=== PATIENT | female | born 1930 | race Caucasian/White ===

== ENCOUNTER 2017-12-30 16:11 | Emergency (ER) | payer MEDICARE, BC ==
[~2017-12-30] VITALS: Ht 157.5 cm; Wt 68.2 kg
[2017-12-30 16:15] VITALS: TEMP 97.2
[2017-12-30] MEDS ORDERED: COREG 6.256.25 MG/TA PO (17:32)
[2017-12-30] MEDS ORDERED: NORCO 325 MG-51 TAB PO (18:23)
[2017-12-30 20:20] VITALS: BP 138/81; PULSE 80
== END 2017-12-30 20:20 | disposition home or self-care (01) ==
LOC: COL.ER 16:11
DX: S52.502A Unspecified fracture of the lower end of left radius, initial encounter for closed fracture (principal); S52.612A Displaced fracture of left ulna styloid process, initial encounter for closed fracture; W01.0XXA Fall on same level from slipping, tripping and stumbling without subsequent striking against object, initial encounter; Y92.007 Garden or yard of unspecified non-institutional (private) residence as the place of occurrence of the external cause
CPT/HCPCS: J2405; J2704; J7030; Q4050

== ENCOUNTER 2019-01-14 10:57 | Emergency (ER) | payer MEDICARE, BC ==
[~2019-01-14] VITALS: Ht 157.5 cm; Wt 68.2 kg
[~2019-01-14 10:57] MED LIST: COREG 6.256.25 MG/TA PO; NORCO 325 MG-51 TAB PO
[2019-01-14 11:02] VITALS: BP 125/72; TEMP 98.9
[2019-01-14] MEDS ORDERED: COREG 6.256.25 MG/TA (11:52)
[2019-01-14] MEDS ORDERED: BENICAR40 MG PO (11:53)
[2019-01-14] MEDS ORDERED: ZOCOR 20MG20 MG PO (11:53)
[2019-01-14] MEDS ORDERED: NORVASC 5MG5 MG/TAB PO (11:54)
[2019-01-14] MEDS ORDERED: HCTZ12.5TAB PO (11:54)
[2019-01-14] MEDS ORDERED: PRILOTC (11:54)
[2019-01-14] MEDS ORDERED: ASPIRIN 81M81 MG/TA2 PO (11:55)
[2019-01-14] MEDS ORDERED: ALDACTONE 25MG25 M1 PO (11:55)
[2019-01-14] MEDS ORDERED: MAG-OX 400400 MG/TAB PO (11:55)
[2019-01-14] MEDS ORDERED: ONE-A-DAY WOMEN1 TAB (11:56)
[2019-01-14 12:00] LABS: HYALINE CAST >12 /lpf; MUCOUS Present /lpf; PH 5 (5-8); SQUAMOUS EPITHELIAL 0-2 /hpf; URINE APPEARANCE Cloudy; URINE BACTERIA Rare /hpf; URINE BILIRUBIN Negative (NEGATIVE); URINE BLOOD 1+ (NEGATIVE); URINE COLOR Amber; URINE GLUCOSE Negative (NEGATIVE); URINE KETONE Negative (NEGATIVE); URINE LEUKOCYTE ESTERASE 2+ (NEGATIVE); URINE NITRATE Negative (NEGATIVE); URINE PROTEIN(semi-quant) 1+ (NEGATIVE); URINE UROBILINOGEN >=4.0 mg/dL (NEGATIVE)
[2019-01-14] MEDS ORDERED: CEPHALEXIN500 M1 PO (12:09)
[2019-01-14 12:20] VITALS: PULSE 91
[2019-01-14 13:28] LABS: COLLECTION METHOD CATHETER
== END 2019-01-14 12:20 | disposition home or self-care (01) ==
LOC: COL.ER 10:57
PROVIDERS: Nurse Practitioner Primary Care
DX: N39.0 Urinary tract infection, site not specified (principal); I10 Essential (primary) hypertension; Z90.710 Acquired absence of both cervix and uterus